=== PATIENT | female | born 1970 | race Asian ===

== ENCOUNTER 2023-06-06 09:09 | Emergency (ER) | payer OTHER ==
[~2023-06-06] VITALS: Ht 157.5 cm; Wt 62.1 kg
[2023-06-06 09:10] VITALS: BP_SYST 159; PULSE 64; RESP 17; TEMP 97.2; O2SAT 99
[2023-06-06] MEDS ORDERED: NABU-140 PO (10:07)
[2023-06-06 13:57] VITALS: BP_SYST 138; PULSE 68; RESP 16; TEMP 97; O2SAT 95
== END 2023-06-06 11:00 | disposition home or self-care (01) ==
LOC: SED 09:09
DX: S16.1XXA Strain of muscle, fascia and tendon at neck level, initial encounter (principal); I10 Essential (primary) hypertension; Z79.899 Other long term (current) drug therapy; V89.2XXA Person injured in unspecified motor-vehicle accident, traffic, initial encounter; Y93.89 Activity, other specified; Y92.89 Other specified places as the place of occurrence of the external cause; Y99.8 Other external cause status
CPT/HCPCS: 70450-TC; 72125-TC; 76376; 99284